=== PATIENT | female | born 1950 | race Hispanic/Latino ===

== ENCOUNTER 2020-04-12 17:41 | Emergency (ER) | payer MEDICARE ==
[~2020-04-12] VITALS: Ht 149.9 cm; Wt 102.1 kg
[2020-04-12] MEDS ORDERED: HYDROCODONE/APAP 10MG-325MG TAB PO ONE (18:00)
[2020-04-12] MEDS ORDERED: ULTRAM50 MG PO (19:36)
== END 2020-04-12 20:25 | disposition home or self-care (01) ==
LOC: ER 18:46
DX: M25.561 Pain in right knee (principal); M17.11 Unilateral primary osteoarthritis, right knee; S83.91XA Sprain of unspecified site of right knee, initial encounter; E66.01 Morbid (severe) obesity due to excess calories
CPT/HCPCS: 99283